=== PATIENT | male | born 1960 | race Caucasian/White ===

== ENCOUNTER → 2019-05-15 | Emergency (ER) | payer MEDICAID ==
[~2019-05-15] VITALS: Ht 185.4 cm; Wt 92.8 kg
[~2019-05-15] MED LIST: CYCL10TA7 PO; HYDR-3980 PO; HYDROCODONE/APAP (10/325) TAB PO ONE; IBUP800T48 PO; KETOROLAC 30 MG INJ IM STA; MED4DP PO
[2019-05-15 10:55] VITALS: BP 125/76; PULSE 78; RESP 18; Ht 185.4 cm; Wt 92.8 kg
--- NOTE | 2019-05-15 11:55 | ERD ---
ER Documentation Chief Complaint Chief Complaint back pain radiating to lt leg x 6 weeks HPI This is a 59-year-old otherwise healthy male who has a history of sciatica and is complaining of flareup of sciatica. He states the pain is in his lower back and radiates down his left lower extremity. He has been taking Motrin 800 but he ran out and now has been taking Motrin 200s but it is not helping. He is also tried tramadol which does not help. He denies any injury or trauma. No fevers. No bowel or bladder incontinence. No saddle anesthesia. ROS All systems reviewed and are negative except as per history of present illness. Medications Home Meds Active Scripts Methylprednisolone* (Medrol* DOSE PACK) 4 Mg/Dose-Pack Tab.ds.pk, 4 MG PO . DIRECTED for 5 Days, PACKET Prov:ENRICO BENTON PA-C 05/15/19 Cyclobenzaprine Hcl* (Cyclobenzaprine Hcl*) 10 Mg Tablet, 10 MG PO BID PRN for MUSCLE SPASMS, #20 TAB Prov:ENRICO BENTON PA-C 05/15/19 Hydrocodone/Acetaminophen ([place] 10-325 Tablet) 1 Each Tablet, 1 TAB PO Q6H PRN for PAIN, #10 TAB Prov:ENRICO BENTON PA-C 05/15/19 Ibuprofen* (Motrin*) 800 Mg Tab, 800 MG PO Q6, #30 TAB Prov:ENRICO BENTON PA-C 05/15/19 Allergies Allergies: Coded Allergies: No Known Allergy (Unverified , 05/15/19) PMhx/Soc Medical and Surgical Hx: pt denies Surgical Hx Hx Cardiac Disorders: Yes (HTN) Hx Alcohol Use: No Hx Substance Use: No Hx Tobacco Use: No FmHx Family History: No diabetes Physical Exam Vitals Vital Signs Date Temp Pulse Resp B/P (MAP) Pulse Ox O2 O2 Flow FiO2 Time Delivery Rate 05/15/19 98.1 78 18 125/76 98 10:55 (92) Physical Exam Const: No acute distress Head: Atraumatic Neck: Full range of motion. No midline tenderness Resp: Clear to auscultation bilaterally Cardio: Regular rate and rhythm, no murmurs Back Exam: Compartments: Soft Motor: Normal flexion and extension of bilateral hip/knee/ankle/foot Sensation: Intact to light touch throughout lower back and bilateral lower extremities Bones: No midline TTP Results 24 hrs Current Medications Medications Dose Sig/Rizwana Start Time Status Last (Trade) Ordered Route PRN Stop Time Admin Dose Reason Admin Ketorolac 30 mg ONCE STAT 05/15/19 DC 05/15/19 Tromethamine IM 11:38 05/15/19 11:45 (Toradol) 11:39 1 tab ONCE ONCE 05/15/19 05/15/19 Acetaminophen PO 12:00 05/15/19 11:45 / 12:01 Hydrocodone Bitart ([place] ()) Procedures/MDM This is a 59-year-old male who has back pain. The differential diagnosis includes but is not limited to muscle strain, ligament strain, contusion, arthritis, discogenetic disease, non-musculoskeletal, cauda equina syndrome, cord compression, abscess and others. Findings are consistent with sciatica which he has a history of. He was given Toradol and [place] here. Discharged with ibuprofen, Flexeril, a Medrol Dosepak, and a small amount of [place]. Per his request he was also given outpatient orthopedic follow-up information. Patient counseled regarding my diagnostic impression and care plan. Prior to discharge all questions answered. Pt agrees with treatment plan and understands strict return precautions. Pt is instructed to follow up with primary care provider within 24-48 hours. Precautionary instructions provided including instructions to return to the ER if not improving or for any worsening or changing symptoms or concerns. Departure Diagnosis: Primary Impression: Sciatica Condition: Stable Patient Instructions: Back Pain (Acute Or Chronic) Referrals: [facility] YOU HAVE RECEIVED A MEDICAL SCREENING EXAM AND THE RESULTS INDICATE THAT YOU DO NOT HAVE A CONDITION THAT REQUIRES URGENT TREATMENT IN THE EMERGENCY DEPARTMENT. FURTHER EVALUATION AND TREATMENT OF YOUR CONDITION CAN WAIT UNTIL YOU ARE SEEN IN YOUR DOCTORS OFFICE WITHIN THE NEXT 1-2 DAYS. IT IS YOUR RESPONSIBILITY TO MAKE AN APPOINTMENT FOR FOLOW-UP CARE. IF YOU HAVE A PRIMARY DOCTOR --you should call your primary doctor and schedule and appointment IF YOU DO NOT HAVE A PRIMARY DOCTOR YOU CAN CALL OUR PHYSICIAN REFERRAL HOTLINE AT . IF YOU CAN NOT AFFORD TO SEE A PHYSICIAN YOU CAN CHOSE FROM THE FOLLOWING [facility]LY [facility] INSTITUTIONS[facility] [address] [place] [address] [facility] [address] [place] [address] [facility] + [address] [address] [facility] Hours: Sat-Sat 9:00 AM - 5:00 PM Additional Instructions: Call your primary care doctor TOMORROW for an appointment during the next 1-2 days.See the doctor sooner or return here if your condition worsens before your appointment time. ENRICO BENTON PA-C May 15, 2019 11:55
== END | disposition home or self-care (01) ==
LOC: FTE 10:51
DX: M54.42 Lumbago with sciatica, left side (principal); I10 Essential (primary) hypertension
CPT/HCPCS: 96372; J1885; Z7502; Z7610